=== PATIENT | female | born 1960 | race Caucasian/White ===

== ENCOUNTER 2022-07-18 07:08 | Day surgery (SDC) | payer OTHER ==
[2022-07-17 15:31] VITALS: BMI 19.0
[2022-07-18] MEDS ORDERED: PROPOFOL 80 ML ONE (07:15)
[2022-07-18] MEDS ORDERED: LIDOCAINE HCL/PF 2% SDV 5ML VIAL ONE ×2 (07:15→08:14)
[2022-07-18] MEDS ORDERED: PROPOFOL 120 ML ONE (08:14)
[2022-07-18 09:42] VITALS: RESP 16; TEMP 97.8
[2022-07-18 09:48] VITALS: BP 119/67; PULSE 90
== END 2022-07-18 09:46 | disposition home or self-care (01) ==
LOC: FASU-ENDO 07:08
PROVIDERS: ATTEND Internal Medicine Gastroenterology
PROC: 0DBL8ZX Excision of Transverse Colon, Via Natural or Artificial Opening Endoscopic, Diagnostic (ICD-10-PCS; 2022-07-18)
PROC: 0DBN8ZX Excision of Sigmoid Colon, Via Natural or Artificial Opening Endoscopic, Diagnostic (ICD-10-PCS; 2022-07-18)
PROC: 0DBP8ZX Excision of Rectum, Via Natural or Artificial Opening Endoscopic, Diagnostic (ICD-10-PCS; principal; 2022-07-18 08:36)
DX: Z12.11 Encounter for screening for malignant neoplasm of colon (principal); Z86.010 Personal history of colon polyps; K63.5 Polyp of colon; K64.1 Second degree hemorrhoids; K57.30 Diverticulosis of large intestine without perforation or abscess without bleeding
CPT/HCPCS: 88305-TC